=== PATIENT | female | born 1975 | race Caucasian/White ===

== ENCOUNTER → 2016-09-08 | Outpatient (CLI) | payer OTHER ==
[~2016-09-08] MED LIST: AMBIEN 5MG TABLE5 MG PO; ASPIRIN E.C. 8181 MG PO; EPIPEN 2-PAK1 MG/ML IM; FOLIC ACID 11 MG/TA1 PO; KLONOPIN 1MG1 MG PO; LAMICTAL150 MG PO; MICARDIS20 MG PO; NORCO 325 MG-51 TAB PO; PROCTOFOAM15 GM RC; SEROQUEL 2525 MG/TAB PO; SEROQUEL50 MG PO; SYNTHROID0.112 MG/T PO; TOPROL XL 25MG25 MG PO; VESICARE10 MG PO; VITAMIN B1100 MCG/ML IM; VITAMIN D2000 I1 PO; ZOFRAN 4MG T4 MG/TAB PO; ZOFRAN8 MG PO; ZYRTEC 10MG10 MG PO; [UNRECOGNIZED DRUG - SUPPLY]
== END ==
LOC: BHSO 15:43
DX: F41.1 Generalized anxiety disorder (principal)

== ENCOUNTER → 2016-12-07 | Outpatient (CLI) | payer OTHER | LOC: BHSO 15:41 | DX: F41.1 Generalized anxiety disorder (principal) ==

== ENCOUNTER → 2017-03-17 | Outpatient (CLI) | payer OTHER | LOC: BHSO 15:19 | DX: F41.1 Generalized anxiety disorder (principal) ==

== ENCOUNTER → 2017-05-24 | Outpatient (CLI) | payer OTHER | LOC: BHSO 15:50 | DX: F41.1 Generalized anxiety disorder (principal) ==

== ENCOUNTER → 2017-07-16 | Outpatient (CLI) | payer OTHER | LOC: BHSO 08:49 | DX: F41.1 Generalized anxiety disorder (principal) ==

== ENCOUNTER → 2017-09-02 | Outpatient (CLI) | payer OTHER | LOC: BHSO 08:53 | DX: F41.1 Generalized anxiety disorder (principal) | CPT/HCPCS: G0463 ==

== ENCOUNTER → 2020-06-11 | Outpatient (CLI) | payer BC, OTHER | LOC: COL.RAD 05-24 12:30 | DX: M51.36 Other intervertebral disc degeneration, lumbar region (principal); M79.89 Other specified soft tissue disorders; M47.26 Other spondylosis with radiculopathy, lumbar region; M47.27 Other spondylosis with radiculopathy, lumbosacral region; R22.31 Localized swelling, mass and lump, right upper limb | CPT/HCPCS: A9585 ==

== ENCOUNTER → 2020-08-12 | Outpatient (CLI) | payer BC, OTHER | LOC: COL.RAD 12:06 | DX: R44.3 Hallucinations, unspecified (principal) ==

== ENCOUNTER → 2020-09-24 | Outpatient (CLI) | payer BC, OTHER | LOC: MHCPAIN 15:12 | DX: M47.817 Spondylosis without myelopathy or radiculopathy, lumbosacral region (principal); M79.18 Myalgia, other site; M53.3 Sacrococcygeal disorders, not elsewhere classified; G89.29 Other chronic pain | CPT/HCPCS: G0463 ==

== ENCOUNTER → 2020-10-23 | Outpatient (CLI) | payer BC, OTHER | LOC: COL.RAD 10:16 | DX: N30.21 Other chronic cystitis with hematuria (principal) ==

== ENCOUNTER 2021-04-26 11:41 | Emergency (ER) | payer BC, OTHER ==
[~2021-04-26] VITALS: Ht 157.5 cm; Wt 62.7 kg
[2021-04-26 12:57] LABS: BASO # 0.1 (0.0-0.2); BASO % 0.8 % (0.0-2.0); EOS % 0.6 % (0-4.0); GRAN # 4.2 (1.4-6.5); GRAN % 66.2 % (42.2-75.2); HEMATOCRIT 40.1 % (37.0-47.0); HEMOGLOBIN 13.6 g/dl (12.5-16.0); LYMPH # 1.6 (1.2-3.4); LYMPH % 25.5 % (20.0-51.0); MEAN CELL VOLUME 90 fl (80.0-100.0); MEAN CORPUSCULAR HEMOGLOBIN 31 pg (27.0-31.0); MEAN CORPUSCULAR HGB CONC 34 g/dl (33.0-37.0); MEAN PLATELET VOLUME 9.6 fl (7.4-10.4); MONO # 0.4 (0.1-0.6); MONO % 6.6 % (1.7-9.3); PLATELET COUNT 304 K/mm3 (130-400); RED BLOOD COUNT 4.46 M/mm3 (4.10-5.30); REDCELL DISTRIBUTION WIDTH-CV 12.4 % (11.5-14.5)
[2021-04-26 13:12] LABS: ALBUMIN 4.2 gm/dL (3.5-5.0); BILIRUBIN,TOTAL 0.7 mg/dL (0.2-1.2); C-REACTIVE PROTEIN 0.1 mg/dL (0.00-0.50); CALCIUM 9.3 mg/dL (8.4-10.2); CREATININE, serum 1.1 mg/dL (0.57-1.11); POTASSIUM 4.5 mmol/L (3.5-4.5); TOTAL PROTEIN 7.4 gm/dL (6.2-8.1)
[2021-04-26 15:39] VITALS: BP 115/84; PULSE 80
== END 2021-04-26 15:40 | disposition home or self-care (01) ==
LOC: COL.ER 11:41
PROVIDERS: Family Medicine
DX: H83.09 Labyrinthitis, unspecified ear (principal); R51.9 Headache, unspecified; I10 Essential (primary) hypertension; F41.9 Anxiety disorder, unspecified; F32.9 Major depressive disorder, single episode, unspecified; F43.10 Post-traumatic stress disorder, unspecified; Z79.899 Other long term (current) drug therapy
CPT/HCPCS: J1100; J1200; J1885; J2405; J7120

== ENCOUNTER 2021-06-30 10:05 | Emergency (ER) | payer BC, OTHER ==
[~2021-06-30] VITALS: Ht 157.5 cm; Wt 61.4 kg
[2021-06-30 10:15] VITALS: TEMP 98
[2021-06-30 12:15] LABS: ALBUMIN 3.9 gm/dL (3.5-5.0); BILIRUBIN,TOTAL 0.4 mg/dL (0.2-1.2); CALCIUM 9.3 mg/dL (8.4-10.2); CREATININE, serum 0.84 mg/dL (0.57-1.11); POTASSIUM 4.3 mmol/L (3.5-4.5); TOTAL PROTEIN 6.6 gm/dL (6.2-8.1)
[2021-06-30 12:27] LABS: BASO # 0.1 K/mm3 (0.0-0.2); EOS # 0.1 K/mm3 (0.0-0.7); EOS % 1.4 % (0-4.0); GRAN % 57.7 % (42.2-75.2); HEMATOCRIT 38.3 % (37.0-47.0); HEMOGLOBIN 12.6 g/dl (12.5-16.0); LYMPH # 2.2 K/mm3 (1.2-3.4); LYMPH % 31.9 % (20.0-51.0); MEAN CELL VOLUME 92 fl (80.0-100.0); MEAN CORPUSCULAR HEMOGLOBIN 30 pg (27.0-31.0); MEAN CORPUSCULAR HGB CONC 33 g/dl (33.0-37.0); MONO # 0.5 K/mm3 (0.1-0.6); MONO % 7.3 % (1.7-9.3); PLATELET COUNT 388 K/mm3 (130-400); RED BLOOD COUNT 4.17 M/mm3 (4.10-5.30); REDCELL DISTRIBUTION WIDTH-CV 12.6 % (11.5-14.5)
[2021-06-30 12:40] LABS: COLLECTION METHOD CLEAN CATCH
[2021-06-30 12:47] LABS: MUCOUS Present (NOT PRESENT); PH 6 (5-8); SQUAMOUS EPITHELIAL 0-2 /hpf (0-10); URINE APPEARANCE Clear (CLEAR/HAZY); URINE BACTERIA None Seen (NONE SEEN); URINE BILIRUBIN Negative (NEGATIVE); URINE BLOOD Negative (NEGATIVE); URINE COLOR Yellow (YELLOW); URINE GLUCOSE Negative (NEGATIVE); URINE KETONE Negative (NEGATIVE); URINE LEUKOCYTE ESTERASE Negative (NEGATIVE); URINE NITRATE Negative (NEGATIVE); URINE PROTEIN(semi-quant) Negative (NEGATIVE); URINE RBC None Seen /hpf (0-2); URINE UROBILINOGEN Negative (NEGATIVE)
[2021-06-30 13:08] VITALS: BP 135/86; PULSE 67
== END 2021-06-30 13:08 | disposition home or self-care (01) ==
LOC: COL.ER 10:05
PROVIDERS: Physician Assistant
DX: R11.0 Nausea (principal); R55 Syncope and collapse; G12.23 Primary lateral sclerosis; Z20.822 Contact with and (suspected) exposure to COVID-19; Z90.711 Acquired absence of uterus with remaining cervical stump; Z32.02 Encounter for pregnancy test, result negative
CPT/HCPCS: J7030

== ENCOUNTER 2023-10-17 22:42 | Observation (INO) | payer BC, OTHER ==
[~2023-10-17] VITALS: Ht 157.5 cm; Wt 61.4 kg
[~2023-10-17 22:42] MED LIST changes: +CEPHALEXIN500 M1 PO; +FLORINEF ACETA0.1 MG PO; +LEXAPRO20 MG PO; +LIORESAL20 MG PO; +LOPRESSOR 225 MG/TAB PO; +MASON NATURAL2000 IU PO; +NEURONTIN300 MG/CAP PO; +SEROQUEL 200MG200 MG PO; +SINGULAIR 110 MG/TAB PO; +TOPROL XL 50MG50 MG PO; +VALIUM 10MG10 MG/TAB PO; +VALIUM 5MG T5 MG/TAB PO; -VITAMIN B1100 MCG/ML IM; +VITAMIN B11000 MCG/M IM; -VITAMIN D2000 I1 PO; +ZANAFLEX 4MG TAB4 MG PO; +ZANAFLEX CAPSULE6 MG PO
[2023-10-17] MEDS ORDERED: NS 1,000 ML IV ONE ×2 (23:00→23:15)
[2023-10-17 23:17] LABS: BASO % 0.6 % (0.0-2.0); EOS # 0.1 K/mm3 (0.0-0.7); EOS % 2.1 % (0.0-4.0); GRAN # 3.4 K/mm3 (1.4-6.5); GRAN % 53.1 % (42.2-75.2); HEMOGLOBIN 12.6 g/dl (12.5-16.0); LYMPH # 2.3 K/mm3 (1.2-3.4); LYMPH % 36.1 % (20.0-51.0); MEAN CELL VOLUME 91 fl (80.0-100.0); MEAN CORPUSCULAR HEMOGLOBIN 32 pg (27-31); MEAN CORPUSCULAR HGB CONC 35 g/dl (33.0-37.0); MEAN PLATELET VOLUME 10.3 fl (7.4-10.4); MONO # 0.5 K/mm3 (0.1-0.6); MONO % 7.9 % (1.7-9.3); PLATELET COUNT 347 K/mm3 (130-400); RED BLOOD COUNT 3.99 M/mm3 (4.10-5.30)
[2023-10-17 23:19] LABS: HEMATOCRIT 36.1 % (37.0-47.0)
[2023-10-17 23:36] LABS: ALBUMIN 3.5 gm/dL (3.5-5.0); BILIRUBIN,TOTAL 0.3 mg/dL (0.2-1.2); C-REACTIVE PROTEIN 0.07 mg/dL (0.00-0.50); CALCIUM 8.8 mg/dL (8.4-10.2); CREATININE, serum 1.18 mg/dL (0.57-1.11); POTASSIUM 3.7 mmol/L (3.5-4.5)
[2023-10-17 23:42] LABS: TROPONIN-I 0.018 ng/mL (0.00-0.033)
[2023-10-18] VITALS (7 sets, daily range): BP systolic 89–151; BP diastolic 58–93; PULSE 63–66; TEMP 97.5–97.9
[2023-10-18 00:34] LABS: COLLECTION METHOD CLEAN CATCH
[2023-10-18] MEDS ORDERED: PERCOCET 325 MG1 TA2 PO (00:46)
[2023-10-18 00:53] LABS: URINE APPEARANCE CLEAR (CLEAR/HAZY); URINE BLOOD NEGATIVE (NEGATIVE); URINE COLOR YELLOW (YELLOW); URINE GLUCOSE NEGATIVE (NEGATIVE); URINE KETONE NEGATIVE (NEGATIVE); URINE NITRATE NEGATIVE (NEGATIVE); URINE PROTEIN(semi-quant) NEGATIVE (NEGATIVE); URINE UROBILINOGEN 0.2 E.U/dL (0.2-1.0)
[2023-10-18 00:55] LABS: TRICYCLIC ANTIDEPRESS URINE POSITIVE (NEGATIVE)
[2023-10-18] MEDS ORDERED: LIORESAL 1010 MG/TAB PO (02:46)
[2023-10-18] MEDS ORDERED: ZANAFLEX CAPSULE6 MG PO (02:47)
[2023-10-18] MEDS ORDERED: ZANAFLEX CAPSULE4 MG PO (02:48)
[2023-10-18] MEDS ORDERED: VALIUM 5MG T5 MG/TAB PO ×2 (02:48)
[2023-10-18] MEDS ORDERED: SEROQUEL 1100 MG/TAB PO (02:49)
[2023-10-18] MEDS ORDERED: LOPRESSOR 550 MG/TAB PO (02:49)
[2023-10-18] MEDS ORDERED: TOPROL XL 50MG50 MG PO (02:54)
[2023-10-18] MEDS ORDERED: FLONASE NASAL S16 GM NS (02:54)
[2023-10-18] MEDS ORDERED: ASPIRIN 81M81 MG/TA2 PO (02:55)
[2023-10-18] MEDS ORDERED: VESICARE10 MG PO (02:55)
[2023-10-18] MEDS ORDERED: oxyCODONE/Acetaminophen 5-325 MG TAB PO PRN (03:00)
[2023-10-18] MEDS ORDERED: Acetaminophen 325 MG TAB PO PRN (03:15)
[2023-10-18] MEDS ORDERED: diazePAM 5 MG TAB PO SCH (08:00)
[2023-10-18] MEDS ORDERED: amLODIPine 5 MG TAB PO SCH (08:00)
[2023-10-18] MEDS ORDERED: tiZANidine 4 MG TAB PO SCH ×2 (08:00→13:00)
[2023-10-18] MEDS ORDERED: Solifenacin 5 MG **** subs to Oxybutynin XL 5 MG PO SCH (09:00)
[2023-10-18] MEDS ORDERED: Gabapentin 300 MG CAP PO SCH (09:00)
[2023-10-18] MEDS ORDERED: Folic Acid 1 MG TAB PO SCH (09:00)
[2023-10-18] MEDS ORDERED: Fluticasone Nasal 50 MCG/Spray 16 GM BOTTLE NS SCH (09:00)
[2023-10-18] MEDS ORDERED: Fludrocortisone 0.1 MG TAB PO SCH (09:00)
[2023-10-18] MEDS ORDERED: Escitalopram 10 MG TAB PO SCH (09:00)
[2023-10-18] MEDS ORDERED: Montelukast 10 MG TAB PO SCH (09:00)
--- NOTE | 2023-10-18 09:00 | NUR ---
Patient is resting in bed, alert and oriented x 4, states some headache, tylenol provided. Assessment completed, meds given. No further needs at this time. Call light within reach.
--- NOTE | 2023-10-18 11:18 | NUR ---
Patient SBP in lower 90's, patient is resting in bed, resports she feels tired, and that her BP jumps from low to high frequently "thats my normal, I just want to see the die grinder to let me go home". Call placed to Dr. Breaux, awaiting for die grinder recommendations.
[2023-10-18] MEDS ORDERED: Cetirizine 10 MG TAB PO SCH (13:00)
[2023-10-18] MEDS ORDERED: Cholecalciferol (Vit D3) 1000 Units TAB PO SCH (13:00)
[2023-10-18] MEDS ORDERED: NORVASC2.5 MG PO (14:26)
--- NOTE | 2023-10-18 15:04 | NUR ---
Script Developer met with patient at bedside to discuss discharge planning. 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 Patient sees Dr. Mckeon as her PCP and uses [facility] on [address]. Patient lists her son Hao ([phone]) as her primary contact. Patient reports having a [employer] that she uses as needed. She has a completed Advanced Directive at home and states she will provide a copy. Patient discussed her children's concerns of her living alone due to syncopal episodes, patient states she has alert on her apple watch to alert when she falls. Patient states she has mental health support following of her and her daughter's recent relocation out of the country. Patient denies any needs at time of discharge and states that her daughter in law will pick her up or she will use an Uber to return home. Discharge: Home
--- NOTE | 2023-10-18 15:53 | NUR ---
Patient was provided with discharge information, all questions answered. IV access and telemetry were discontinued. Pt waiting for family to pick her up.
[2023-10-18] MEDS ORDERED: diazePAM 10 MG TAB PO SCH (21:00)
[2023-10-18] MEDS ORDERED: QUEtiapine 100 MG TAB PO SCH (21:00)
[2023-10-18] MEDS ORDERED: Baclofen 10 MG TAB PO SCH (21:00)
== END 2023-10-18 16:00 | disposition home or self-care (01) ==
LOC: COL.ER 22:42 → MEDICAL 10-18 01:18 → SURG 10-18 13:01 → MEDICAL 10-18 16:00
PROVIDERS: Nurse Practitioner Primary Care; ADMIT Internal Medicine
DX: R55 Syncope and collapse (principal); I95.9 Hypotension, unspecified; R00.1 Bradycardia, unspecified; G98.8 Other disorders of nervous system; Z85.820 Personal history of malignant melanoma of skin; Z95.818 Presence of other cardiac implants and grafts; Z79.899 Other long term (current) drug therapy; I10 Essential (primary) hypertension; I95.1 Orthostatic hypotension
CPT/HCPCS: G0378; J7030